=== PATIENT | male | born 1970 | race Caucasian/White ===

== ENCOUNTER 2017-07-07 08:10 | Emergency (ER) | payer BC ==
[~2017-07-07] VITALS: Ht 180.3 cm; Wt 86.0 kg
[2017-07-07 08:13] VITALS: Ht 180.3 cm; Wt 86.0 kg
[2017-07-07] MEDS ORDERED: IBUPROFEN 800 MG TAB PO ONE (08:30)
--- NOTE | 2017-07-07 09:14 | ERD ---
ER Documentation Chief Complaint Date/Time DATE: 07/07/17 TIME: 09:10 Chief Complaint Right leg pain x 1 day hurt at work HPI This is a 46-year-old male who presents emergency department today complaining of right leg pain for the past couple of days. Patient states he was at work for a [employer] company when he fell off a container from at least 4 feet high and landed with his leg straight. States that his ankle is still very swollen. Denies any previous trauma, fevers or chills. She has not taken any medication for the pain. States he is able to walk but has pain. ROS All systems reviewed and are negative except as per history of present illness. Medications Home Meds Active Scripts Acetaminophen* (Tylophen*) 500 Mg Capsule, 1 CAP PO Q6H Y for PAIN AND OR ELEVATED TEMP, #30 CAP Prov:KIP BOLIVAR PA-C 07/07/17 Naproxen* (Naprosyn*) 500 Mg Tablet, 500 MG PO BID Y for PAIN AND/OR INFLAMMATION, #30 TAB Prov:KIP BOLIVAR PA-C 07/07/17 Tramadol HCl (Tramadol HCl) 50 Mg Tablet, 50 MG PO Q4 Y for PAIN, #20 TAB Prov:KIP BOLIVAR PA-C 07/07/17 Allergies Allergies: Coded Allergies: No Known Allergy (Unverified , 07/07/17) PMhx/Soc History of Surgery: No Anesthesia Reaction: No Hx Neurological Disorder: No Hx Respiratory Disorders: No Hx Cardiac Disorders: No Hx Psychiatric Problems: No Hx Miscellaneous Medical Probl: No Hx Alcohol Use: Yes Hx Substance Use: No Hx Tobacco Use: Yes Smoking Status: Current every day smoker Physical Exam Vitals Vital Signs Date Time Temp Pulse Resp B/P Pulse Ox O2 Delivery O2 Flow Rate FiO2 07/07/17 08:13 98.8 94 18 152/79 98 Physical Exam Const: No acute distress Head: Atraumatic Eyes: Normal Conjunctiva ENT: Normal External Ears, Nose and Mouth. Neck: Full range of motion..~ No meningismus. Resp: Clear to auscultation bilaterally Cardio: Regular rate and rhythm, no murmurs Skin: No petechiae or rashes Back: No midline or flank tenderness Ext: Right leg with no obvious deformity. Moderate effusion over right ankle. Full active range of motion at ankle. Mild edema in foot. Tenderness palpation tibia, femur medially. Nontender foot. Pulses 2+. Distal neurovascularly intact Neur: Awake and alert Psych: Normal Mood and Affect Results 24 hrs Current Medications Medications (Trade) Dose Ordered Sig/Monik Route PRN Reason Start Time Stop Time Status Last Admin Dose Admin Ibuprofen (Motrin) 800 mg ONCE ONCE PO 07/07/17 08:30 07/07/17 08:31 DC 07/07/17 08:33 DIAGNOSTIC IMAGING REPORT Patient: MARGIE RIDDLE : 1970 Age: 46 Sex: M MR #: [id number] DOS: 07/07/17 0000 Ordering MD: KIP BOLIVAR PA-C Location: [facility] Room/Bed: PROCEDURE: XR Right Ankle. CLINICAL INDICATION: Trauma and pain TECHNIQUE: AP, oblique and lateral views of the right ankle were performed. COMPARISON: None. FINDINGS: There is no evidence of acute fracture or dislocation. The bony mineralization is normal. No focal bony blastic or lytic lesions. The soft tissues are unremarkable. IMPRESSION: No evidence of acute fractures or dislocations. RPTAT:AAJJ Physician Magi Date Time Electronically viewed and signed by Physician Magi on 07/07/2017 09:34 BM/ CC: KIP BOLIVAR PA-C DIAGNOSTIC IMAGING REPORT Patient: MARGIE RIDDLE : 1970 Age: 46 Sex: M MR #: [id number] DOS: 07/07/17 0000 Ordering MD: KIP BOLIVAR PA-C Location: [facility] Room/Bed: PROCEDURE: Lumbar spine series CLINICAL INDICATION: Trauma TECHNIQUE: AP lateral and coned lateral views lumbar spine were obtained COMPARISON: None FINDINGS: There is no evidence of acute fractures or subluxations. The bony mineralization is normal. No focal bony blastic or lytic lesions. There is mild degenerate enthesopathy throughout the lumbar spine. The posterior elements appear intact. IMPRESSION: Mild degenerate changes without evidence of acute fractures or subluxations. RPTAT:AAJJ Bello Barros, Physician Date Time Electronically viewed and signed by Bello Barros Physician on 07/07/2017 09:35 BM/ CC: KIP BOLIVAR PA-C DIAGNOSTIC IMAGING REPORT Patient: MARGIE RIDDLE : 1970 Age: 46 Sex: M MR #: [id number] DOS: 07/07/17 0000 Ordering MD: KIP BOLIVAR PA-C Location: [facility] Room/Bed: PROCEDURE: Right femur x-ray CLINICAL INDICATION: trauma, fall at work from height of 3-4 feet TECHNIQUE: Four views of the femur were obtained. COMPARISON: None FINDINGS: There is normal mineralization. No acute fracture or dislocation is seen. There are no significant degenerative changes. There is no significant soft tissue swelling. IMPRESSION: Normal x-ray of the right femur. RPTAT: EE Alycia Franks, Physician Date Time Electronically viewed and signed by Alycia Franks Physician on 07/07/2017 09: 29 RC/ CC: KIP BOLIVAR PA-C DIAGNOSTIC IMAGING REPORT Patient: MARGIE RIDDLE : 1970 Age: 46 Sex: M MR #: [id number] DOS: 07/07/17 0000 Ordering MD: KIP BOLIVAR PA-C Location: [facility] Room/Bed: PROCEDURE: XR Tibia and Fibula. CLINICAL INDICATION: trauma, fall at work from height of 3-4 feet TECHNIQUE: AP and lateral views of the right tibia and fibula were obtained. COMPARISON: No prior studies are available for comparison. FINDINGS: The proximal medial tibia is collimated off the AP image, limiting evaluation. There is normal mineralization and alignment. No fracture or osseous lesion is identified. The joints are unremarkable. There are normal soft tissues without evidence of soft tissue swelling. IMPRESSION: Slightly limited evaluation due to exclusion of the proximal medial tibia on the AP view. No acute fracture or dislocation is identified. RPTAT: EE Physician Sampson Date Time Electronically viewed and signed by Physician Sampson on 07/07/2017 09: 34 RC/ CC: KIP BOLIVAR PA-C Procedures/MDM This 46-year-old male who presents the emergency department today complaining of right leg pain after sustaining a trauma and fall at his work a couple of days ago. Patient felt that the pain would improve however it has not in he still continues to have right ankle swelling. Given patient's trauma and physical exam I did obtain images Per the radiology report images of the right ankle show no evidence of acute fracture dislocation Images of the right tibia-fibula shows no acute fracture dislocation. Joints are unremarkable. Soft tissues are unremarkable without evidence of soft tissue swelling. Images of the right femur show no acute fracture dislocation. There is no significant degenerative changes there is no significant soft tissue swelling Images of the lumbar spine show mild degenerative changes without evidence of acute fracture or subluxation. Given patient's fall from height especially landing with his leg straight I did also obtain a lumbar spine film. Patient symptoms at this time is consistent with right leg pain and sprain versus strain versus contusion secondary to fall. Low suspicion for acute fracture dislocation. Patient is afebrile and otherwise well-appearing. Low suspicion for septic joint or gout. She was given Gattman here in the emergency department. He will begin a short course of tramadol, Naprosyn, Tylenol for home. Patient was also given an Miguel wrap and crutches to help ambulate. At this time the patient is stable for discharge and outpatient management. Patient should follow up with their PCP in the next 1-2 days. They may return to the emergency department sooner for any persistent or worsening of symptoms. Patient understood and agreed with the plan. Departure Diagnosis: Primary Impression: Pain of right leg Condition: KIP Mir PA-C Jul 07, 2017 09:14
--- NOTE | 2017-07-07 09:30 | RADRPT ---
PROCEDURE: Right femur x-ray CLINICAL INDICATION: trauma, fall at work from height of 3-4 feet TECHNIQUE: Four views of the femur were obtained. COMPARISON: None FINDINGS: There is normal mineralization. No acute fracture or dislocation is seen. There are no significant degenerative changes. There is no significant soft tissue swelling. IMPRESSION: Normal x-ray of the right femur. RPTAT: EE Physician Sampson Date Time Electronically viewed and signed by Alycia Franks Physician on 07/07/2017 09:29 DANE/
--- NOTE | 2017-07-07 09:34 | RADRPT ---
PROCEDURE: XR Tibia and Fibula. CLINICAL INDICATION: trauma, fall at work from height of 3-4 feet TECHNIQUE: AP and lateral views of the right tibia and fibula were obtained. COMPARISON: No prior studies are available for comparison. FINDINGS: The proximal medial tibia is collimated off the AP image, limiting evaluation. There is normal mineralization and alignment. No fracture or osseous lesion is identified. The joint s are unremarkable. There are normal soft tissues without evidence of soft tissue swelling. IMPRESSION: Slightly limited evaluation due to exclusion of the proximal medial tibia on the AP view. No acute f racture or dislocation is identified. RPTAT: EE Physician Sampson Date Time Electronically viewed and signed by Physician Sampson on 07/07/2017 09:34 /
--- NOTE | 2017-07-07 09:35 | RADRPT ---
PROCEDURE: XR Right Ankle. CLINICAL INDICATION: Trauma and pain TECHNIQUE: AP, oblique and lateral views of the right ankle were performed. COMPARISON: None. FINDINGS: There is no evidence of acute fracture or dislocation. The bony mineralization is normal. No focal bony blastic or lytic lesions. The soft tissues are unremarkable. IMPRESSION: No evidence of acute fractures or dislocations. RPTAT:AAJJ Physician Magi Date Time Electronically viewed and signed by Bello Barros Physician on 07/07/2017 09:34 /
--- NOTE | 2017-07-07 09:36 | RADRPT ---
PROCEDURE: Lumbar spine series CLINICAL INDICATION: Trauma TECHNIQUE: AP lateral and coned lateral views lumbar spine were obtained COMPARISON: None FINDINGS: There is no evidence of acute fractures or subluxations. The bony mineralization is normal. No foc al bony blastic or lytic lesions. There is mild degenerate enthesopathy throughout the lumbar spine . The posterior elements appear intact. IMPRESSION: Mild degenerate changes without evidence of acute fractures or subluxations. RPTAT:AAJJ Physician Magi Date Time Electronically viewed and signed by Physician Magi on 07/07/2017 09:35 BM/
[2017-07-07] MEDS ORDERED: TRAM50TA2 PO (09:44)
[2017-07-07] MEDS ORDERED: NAPR-260 PO (09:44)
[2017-07-07] MEDS ORDERED: ACET500C5 PO (09:45)
== END 2017-07-07 09:55 | disposition home or self-care (01) ==
LOC: FTE 08:10
DX: M79.604 Pain in right leg (principal); F17.210 Nicotine dependence, cigarettes, uncomplicated
CPT/HCPCS: 72100; 73550; 73590

== ENCOUNTER 2019-07-30 19:32 | Emergency (ER) | payer BC, OTHER ==
[~2019-07-30] VITALS: Ht 172.7 cm; Wt 75.0 kg
[~2019-07-30 19:32] MED LIST: ACET500C5 PO; ERYT1OIN6 RIGHT EYE; NAPR-985 PO; TRAM50TA2 PO
[2019-07-30 19:36] VITALS: BP 149/82; PULSE 71; RESP 19; Ht 172.7 cm; Wt 75.0 kg
[2019-07-30] MEDS ORDERED: FLUORESCEIN STRIP RIGHT EYE ONE (20:30)
[2019-07-30] MEDS ORDERED: DIPHTH/TET/ACEL PERTUSS (ADULT) 0.5 ML VIAL IM* ONE (20:30)
[2019-07-30] MEDS ORDERED: TETRACAINE 0.5% 4 ML OPH RIGHT EYE SCH (20:30)
[2019-07-30] MEDS ORDERED: ERYTHROMYCIN 1 GM OPH OINT RIGHT EYE ONE (22:00)
== END 2019-07-30 21:58 ==
LOC: E/R 19:32
DX: S00.83XA Contusion of other part of head, initial encounter (principal); S00.81XA Abrasion of other part of head, initial encounter; W19.XXXA Unspecified fall, initial encounter; Y92.410 Unspecified street and highway as the place of occurrence of the external cause; Z87.891 Personal history of nicotine dependence; Z23 Encounter for immunization
CPT/HCPCS: 90471; 90715